=== PATIENT | male | born 1995 | race Two or more races ===

== ENCOUNTER 2017-02-23 00:19 | Emergency (ER) | payer OTHER ==
[~2017-02-23] VITALS: Ht 170.2 cm; Wt 77.1 kg
[2017-02-23] MEDS ORDERED: LISINOPRIL5 MG ORAL (00:31)
[2017-02-23 00:51] VITALS: BP 151/93
[2017-02-23] MEDS: Tetracaine 0.5% Opth 4ml Soln RIGHT EYE ONE (01:13)
[2017-02-23] MEDS: Tetracaine 0.5% Opth 4ml Soln LEFT EYE ONE (01:13)
--- NOTE | 2017-02-23 01:25 | Emergency Room Report ---
History of Present Illness General Chief Complaint: Eye Problems Source: Patient Present Illness HPI 21-year-old male no significant past medical history presenting with getting bleach in his eye. Patient states that he was cleaning, bleach onto his clothes and into his eye, denies any blurry vision however complaining of burning in his eye. Also states that some of the things that he was bleaching her from patient's with HIV, concerned about HIV Allergies: Coded Allergies: No Known Allergies (Unverified , 02/23/17) Patient History Past Medical History: see triage record Past Surgical History: none Pertinent Family History: none Reviewed Nursing Documentation: PMH: Agreed, PSxH: Agreed Nursing Documentation-PMH Hx Hypertension: Yes Review of Systems All Other Systems: negative except mentioned in HPI Physical Exam Vital Signs Date Time Temp Pulse Resp B/P (MAP) Pulse Ox O2 Delivery O2 Flow Rate FiO2 02/23/17 00:26 98.1 70 20 151/93 99 Room Air Sp02 EP Interpretation: reviewed, normal General Appearance: normal inspection, well appearing, no apparent distress, alert, GCS 15, non-toxic Head: normocephalic, atraumatic Eyes: bilateral eye normal inspection, bilateral eye PERRL, bilateral eye EOMI , bilateral eye other - no scleral injection noted. visual acuity grossly intact ENT: normal ENT inspection, normal pharynx, normal voice, moist mucus membranes Neck: normal inspection, full range of motion, supple Respiratory: normal inspection, lungs clear, normal breath sounds, no respiratory distress, no retraction, no wheezing, speaking full sentences, chest symmetrical Cardiovascular #1: normal inspection, regular rate, rhythm, normal capillary refill Cardiovascular #2: 2+ radial (R), 2+ radial (L) Gastrointestinal: normal inspection, non tender, soft, non-distended, no guarding Musculoskeletal: normal inspection, back normal, normal range of motion, non- tender Neurologic: normal inspection, alert, oriented x3, responsive, motor strength/ tone normal, sensory intact, normal gait, speech normal Psychiatric: normal inspection, judgement/insight normal, memory normal Skin: normal inspection, normal color, no rash, warm/dry, well hydrated, normal turgor Medical Decision Making Diagnostic Impression: Primary Impression: Chemical exposure of eye ER Course 21-year-old male, got bleach in eye DDX: Chemical irritation of eyes Very low likelihood of HIV transmission, however will perform HIV test Plan: Tetracaine, Harry lens irrigation for bilateral eyes, HIV test ER course: Patient has remained stable during ED stay. Feels much better after eye irrigation, visual acuity intact states he wants to go home -- does not want to wait for HIV test Disposition: Patient is to be discharged to home. Patient is instructed to follow up with their primary care doctor within 5 days. Strict return precautions discussed with patient such as worsening/severe pain, blurry vision, chest pain, SOB, nausea, vomiting, which may indicate severe illness. Patient verbalizes understanding and agrees with plan. Please note that this Emergency Department Report was dictated using [employer] computer technology software, occasionally this can lead to erroneous entry secondary to interpretation by the dictation equipment Last Vital Signs Date Time Temp Pulse Resp B/P (MAP) Pulse Ox O2 Delivery O2 Flow Rate FiO2 02/23/17 00:51 98.1 20 151/93 99 Room Air 02/23/17 00:26 70 Disposition: HOME, SELF-CARE Condition: Improved Patient Instructions: Chemical Conjunctivitis, [id number] Farzad Jasmine M.D. Feb 23, 2017 01:25
[2017-02-23 01:50] VITALS: BP 145/81
== END 2017-02-23 01:50 | disposition home or self-care (01) ==
LOC: EMR 00:46
DX: Z77.098 Contact with and (suspected) exposure to other hazardous, chiefly nonmedicinal, chemicals (principal); I10 Essential (primary) hypertension
CPT/HCPCS: 86703; 99283